=== PATIENT | female | born 1950 | race Native Hawaiian/Other Pacific Islander ===

== ENCOUNTER 2017-07-12 07:41 | Emergency (ER) | payer OTHER, MEDICARE, MEDICAID ==
[2017-07-12 07:49] VITALS: BMI 31.3
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
--- NOTE | 2017-07-12 09:17 | CT ---
PROCEDURE: CT HEAD WITHOUT CONTRAST. HISTORY: fall r/o ICH COMPARISON: None available. TECHNIQUE: Axial computed tomography images were obtained through the head/brain without intravenous contrast. Radiation dose: Total exam DLP = 823 mGy-cm. This CT exam was performed using one or more of the following dose reduction techniques: Automated exposure control, adjustment of the mA and/or kV according to patient size, and/or use of iterative reconstruction technique. FINDINGS: HEMORRHAGE: No intracranial hemorrhage. BRAIN: No mass effect or edema. No atrophy or chronic microvascular ischemic changes. Left basal ganglionic faint nonspecific calcifications VENTRICLES: Unremarkable. No hydrocephalus. CALVARIUM: Unremarkable. PARANASAL SINUSES: Trace ethmoidal sinus mucosal thickening No significant inflammatory changes. MASTOID AIR CELLS: Unremarkable as visualized. No inflammatory changes. OTHER FINDINGS: At the nasofrontal bone junction there is a 7 -8 mm midline focus i, less dense than bone, but more dense than the surrounding soft tissues. Some form of implant is 1 consideration. Clinical correlation with detailed history is requested Atherosclerotic vascular calcifications of the vertebrobasilar IMPRESSION: No intracranial hemorrhage or mass effect.
--- NOTE | 2017-07-12 09:44 | RAD ---
PROCEDURE: HISTORY: fall r/o fx COMPARISON: None TECHNIQUE: AP view of the pelvis and applicable frog leg views obtained. FINDINGS: No fracture or dislocation Bilateral superolateral hip joint space narrowing with right superolateral acetabular mild spurring. Sacroiliac and pubic symphyseal joints normal appearing IMPRESSION: No fracture or dislocation. Bilateral hip arthrosis right greater than left
--- NOTE | 2017-07-12 09:46 | RAD ---
PROCEDURE: Radiographs of the Right Shoulder HISTORY: fall r/o fx COMPARISON: No prior. FINDINGS: BONES: . No fracture. Greater tuberosity subchondral sclerosis JOINTS: Glenohumeral and acromioclavicular joints osteoarthritis. Spurring along the inferior aspect of the acromion is suggested. A contiguous old osseous avulsion here not excluded. SOFT TISSUES: Normal. OTHER FINDINGS: None. IMPRESSION: Right acromioclavicular and right glenohumeral joint arthrosis. No fracture or dislocation.
[2017-07-12 09:54] VITALS: TEMP 98.6
[2017-07-12 10:34] VITALS: BP 150/78; PULSE 73; RESP 16; O2SAT 98
== END 2017-07-12 10:35 | disposition home or self-care (01) ==
LOC: ED 07:41
DX: S09.90XA Unspecified injury of head, initial encounter (principal); S49.91XA Unspecified injury of right shoulder and upper arm, initial encounter; V73.6XXA Passenger on bus injured in collision with car, pick-up truck or van in traffic accident, initial encounter; Y92.410 Unspecified street and highway as the place of occurrence of the external cause; M25.551 Pain in right hip
CPT/HCPCS: 70450; 72125; 73030; 73502; 96372; 99284; J1885

== ENCOUNTER 2017-07-18 09:49 | Emergency (ER) | payer OTHER, MEDICARE, MEDICAID ==
[2017-07-18 09:49] VITALS: BMI 31.3
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
[2017-07-18 10:06] VITALS: TEMP 98.3
[2017-07-18] MEDS ORDERED: Sodium Chloride 0.9% 500 ML IV STA (10:15)
[2017-07-18] MEDS ORDERED: Morphine 2 mg/ml ISec IVP STA (10:17)
[2017-07-18 10:43] LABS: ALB/GLOB RATIO 1.7 (1.1-1.8); ALKALINE PHOSPHATASE 38 U/L (38-126); ALT/SGPT 36 U/L (7-56); AST/SGOT 29 U/L (14-36); BILIRUBIN,TOTAL 0.3 mg/dL (0.2-1.3); BLOOD UREA NITROGEN 34 mg/dL (7-21); CALCIUM 9.4 mg/dL (8.4-10.5); CARBON DIOXIDE 27 mmol/L (21-33); CHLORIDE 101 mmol/L (98-107); GFR AFRICAN-AMERICAN 49; GLUCOSE,RANDOM 211 mg/dL (70-110); POTASSIUM 4.6 mmol/L (3.6-5.0); SODIUM 139 mmol/L (132-148); TOTAL PROTEIN 7.2 g/dL (5.8-8.3)
[2017-07-18 10:46] LABS: BASO # 0.02 K/mm3 (0.0-2.0); BASO % 0.3 % (0.0-3.0); EOS # 0.3 (0.0-0.7); EOS % 4.1 % (1.5-5.0); GRAN # 2.68 (1.4-6.5); GRAN % 43.7 % (50.0-68.0); HEMATOCRIT 35.8 % (36.0-48.0); LYMPH # 2.7 (1.2-3.4); LYMPH % 43.6 % (22.0-35.0); MEAN CELL VOLUME 87.3 fl (80.0-105.0); MEAN CORPUSCULAR HEMOGLOBIN 28.3 pg (25.0-35.0); MEAN CORPUSCULAR HGB CONC 32.4 g/dl (31.0-37.0); MEAN PLATELET VOLUME 11.4 fl (7.0-11.0); MONO # 0.5 (0.1-0.6); MONO % 8.3 % (1.0-6.0); RED CELL DISTRIBUTION WIDTH 12.8 % (11.5-14.5); WHITE BLOOD COUNT 6.1 10^3/ul (4.5-11.0)
[2017-07-18 10:46] LABS: URINE BILIRUBIN NEGATIVE (NEGATIVE); URINE BLOOD NEGATIVE (NEGATIVE); URINE GLUCOSE (UA) NEGATIVE (NEGATIVE); URINE KETONE NEGATIVE (NEGATIVE); URINE LEUKOCYTE ESTERASE NEGATIVE Leu/uL (NEGATIVE); URINE PROTEIN TRACE mg/dL (<30 mg/dL); URINE UROBILINOGEN 0.2 E.U./dL (<1 E.U./dL)
[2017-07-18 10:48] LABS: URINE APPEARANCE CLEAR (CLEAR); URINE COLOR YELLOW (YELLOW)
[2017-07-18 10:54] LABS: URINE BACTERIA SMALL (NEG); URINE RBC NEGATIVE /hpf (0-2); URINE WBC 0 - 2 /hpf (0-6)
[2017-07-18 10:55] LABS: TROPONIN I < 0.01 ng/mL
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
[2017-07-18] MEDS ORDERED: Sodium Chloride 0.9% 1,000 ML IV SCH (11:30)
--- NOTE | 2017-07-18 11:35 | RAD ---
HISTORY: medical clearance COMPARISON: No prior. FINDINGS: LUNGS: No active pulmonary disease. PLEURA: No significant pleural effusion identified, no pneumothorax apparent. CARDIOVASCULAR: Normal. OSSEOUS STRUCTURES: No significant abnormalities. VISUALIZED UPPER ABDOMEN: Normal. OTHER FINDINGS: None. IMPRESSION: No active disease.
--- NOTE | 2017-07-18 11:51 | CT ---
PROCEDURE: CT Cervical Spine without contrast HISTORY: Right-sided neck pain radiating to the right trapezius COMPARISON: None available. TECHNIQUE: Axial computed tomography images were obtained of the cervical spine without the use of intravenous contrast. Coronal and sagittal reformatted images were created and reviewed. Radiation dose: Total exam DLP = 649 mGy-cm. This CT exam was performed using one or more of the following dose reduction techniques: Automated exposure control, adjustment of the mA and/or kV according to patient size, and/or use of iterative reconstruction technique. FINDINGS: VERTEBRAE: No fracture. Normal alignment. No destructive bony lesion. DISCS/SPINAL CANAL/NEURAL FORAMINA: No significant central canal or neural foraminal stenosis. Discs heights are grossly preserved. PARASPINAL SOFT TISSUES: Unremarkable. OTHER FINDINGS: None. IMPRESSION: Unremarkable CT of the cervical spine.
[2017-07-18 13:04] VITALS: O2SAT 95
[2017-07-18 16:27] VITALS: BP 147/73; PULSE 66; RESP 18
--- NOTE | 2017-07-19 00:59 | CARD ---
APPROVED REPORT EKG Measurement Heart [id number] <Conclusion> Normal sinus rhythm Normal ECG
== END 2017-07-18 14:25 | disposition home or self-care (01) ==
LOC: ED 09:49
DX: F07.81 Postconcussional syndrome (principal); M54.2 Cervicalgia; E86.0 Dehydration
CPT/HCPCS: 70450; 71010; 72125; 80053; 81001; 82550; 83615; 84484; 85025; 93005; 96361; 96374; 96375; 99285; J1885; J2270; J2405; J7040

== ENCOUNTER 2019-01-10 08:48 | Emergency (ER) | payer MEDICAID, MEDICARE, OTHER ==
[2019-01-10 08:48] VITALS: BMI 31.3
[2019-01-10] MEDS ORDERED: Oxycodone/Acetaminophen 5/325 mg Tab PO STA ×2 (10:42→14:03)
[2019-01-10] MEDS ORDERED: Lidocaine 5% Patch TD STA (10:43)
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
[2019-01-10 11:16] LABS: BARBITURATES, UR NEGATIVE (NEGATIVE); BENZODIAZEPINES, UR NEGATIVE (NEGATIVE); OPIATES, UR NEGATIVE (NEGATIVE); PHENCYCLIDINE, UR NEGATIVE (NEGATIVE)
--- NOTE | 2019-01-10 11:55 | RAD ---
PROCEDURE: Right Hip Radiographs. HISTORY: pain COMPARISON: None. TECHNIQUE: Three views obtained. FINDINGS: BONES: Normal. No fracture. JOINTS: Normal. SOFT TISSUES: Normal. OTHER FINDINGS: None. IMPRESSION: Normal radiographs of right hip.
[2019-01-10 12:18] VITALS: O2SAT 99
[2019-01-10 15:59] VITALS: BP 145/64; PULSE 65; RESP 16; TEMP 98.1
--- NOTE | 2019-01-10 16:10 | CARD ---
APPROVED REPORT Date of service: 01/10/2019 EKG Measurement Heart [id number] <Conclusion> Normal sinus rhythm Normal ECG
== END 2019-01-10 15:58 | disposition home or self-care (01) ==
LOC: ED 08:48
DX: M54.17 Radiculopathy, lumbosacral region (principal); K59.00 Constipation, unspecified; I10 Essential (primary) hypertension; E11.9 Type 2 diabetes mellitus without complications
CPT/HCPCS: 73502; 93005; 96372; 99283; G0480; J1885